=== PATIENT | male | born 1985 | race Two or more races ===

== ENCOUNTER 2019-07-21 22:53 | Emergency (ER) | payer MEDICAID ==
[~2019-07-21] VITALS: Ht 175.3 cm; Wt 69.0 kg
[2019-07-22] MEDS ORDERED: FAMOTIDINE 20MG TABLET PO STA (01:27)
[2019-07-22] MEDS ORDERED: MAGNESIUM/ALUMINUM HYDROXIDE/SIMETHICONE 30ML UDC PO ONE (01:30)
[2019-07-22] MEDS ORDERED: ONDANSETRON 4MG ODT PO ONE (01:30)
[2019-07-22 02:26] VITALS: BP 123/70
== END 2019-07-22 02:26 | disposition home or self-care (01) ==
LOC: ER 22:53
DX: K29.70 Gastritis, unspecified, without bleeding (principal)
CPT/HCPCS: 99284; Q0162